=== PATIENT | female | born 1975 | race Caucasian/White ===

== ENCOUNTER 2020-07-16 12:58 | Emergency (ER) | payer OTHER ==
[~2020-07-16] VITALS: Ht 162.6 cm; Wt 69.0 kg
--- NOTE | 2020-07-16 14:17 | RAD ---
EXAM: CT pelvis without contrast DATE: 07/16/2020 1:55 PM COMPARISON: No prior INDICATION: Reason: sledging, hit a big rock, pelvic pain, hip pain, coccyx pain / Spl. Instructions : / History: TECHNIQUE: CT of the pelvis was performed without IV contrast. Axial, coronal and sagittal reformatte d images were generated. PQRS compliance statement - One or more of the following individualized dose reduction techniques wer e utilized for this study: 1. Automated exposure control 2. Adjustment of the mA and/or kV according to patient size 3. Use of iterative reconstruction technique FINDINGS: Symphysis pubis and SI joints are preserved. No acute fracture or dislocation. Schmorl's node is seen at the superior endplate of L5. Moderate colonic stool content. No pelvic mass, lymphadenopathy or ascites. Subcutaneous soft tissue swelling about the gluteal muscles bilaterally likely contusion. IMPRESSION: 1. Soft tissue contusion overlying the gluteal region bilaterally. 2. No definite acute fracture or dislocation. Electronically signed by: Wing Garrison MD (07/16/2020 2:14 PM) [id number]
--- NOTE | 2020-07-16 15:03 | PHYS DOC ---
Past History Past Medical History: Cancer, GERD Additional Past Medical Histor: HORMONE REPLACEMENT, IBS, ADHD Past Surgical History: Cholecystectomy, Hysterectomy Additional Past Surgical Histo: R. SINUS, LIPO, BREAST AUG, VAGINAL FLAP, UPPER/LOWER ENDO Alcohol Use: Occasionally General Adult EDM: Chief Complaint: GROIN PAIN HPI: HPI: Patient is a 45 years old female who presented to the ER for evaluation of pelvic pain, coccyx pain and buttock contusion due to sledding accident on 07/14/20. Patient said she and her friend was sledding down a hill, her friend was sitting in front. Their sled struck a large rock on the ground, broke it. She has have pelvic pain since. She was able to walk but could not sit on her butt due to pain. She denied any vaginal bleeding. She denied any abdominal pain. She said her friend broke her tailbone. She did not seek medical attention until today. Patient denied any weakness or numbness in her legs. NO bowel or bladder incontinence. Review of Systems: Review of Systems: Constitutional: Denies fever or chills Eyes: Denies change in visual acuity HENT: Denies nasal congestion or sore throat Respiratory: Denies cough or shortness of breath Cardiovascular: Denies chest pain or edema GI: Denies abdominal pain, nausea, vomiting, bloody stools or diarrhea : Denies dysuria Musculoskeletal: Positive for pelvic pain Integument: Positive for buttock bruise. Neurologic: Denies headache, focal weakness or sensory changes Endocrine: Denies polyuria or polydipsia Lymphatic: Denies swollen glands Psychiatric: Denies depression or anxiety Allergies: Allergies: Allergies Coded Allergies Type Severity Reaction Last Updated Verified sulfamethoxazole Allergy Severe Anaphylaxis 07/16/20 Yes trimethoprim Allergy Severe Anaphylaxis 07/16/20 Yes Physical Exam: PE: Constitutional: Well developed, well nourished, no acute distress, non-toxic appearance. [] HENT: Normocephalic, atraumatic, bilateral external ears normal, oropharynx moist, no oral exudates, nose normal. [] Eyes: PERRLA, EOMI, conjunctiva normal, no discharge. [] Neck: Normal range of motion, no tenderness, supple, no stridor. [] Cardiovascular:Heart rate regular rhythm, no murmur [] Lungs & Thorax: Bilateral breath sounds clear to auscultation [] Abdomen: Bowel sounds normal, soft, no tenderness, no masses, no pulsatile masses. [] Skin: Warm, dry, large skin contusion at and around the perigenital, buttock area. Back: No tenderness, no CVA tenderness. [] Extremities: No tenderness, no cyanosis, no clubbing, ROM intact, no edema. COCCYX AREA IS TENDER TO PALPATION, PELVIC AREA IS TENDER TO PALPATION. NO TENDER WITH HIP MOVEMENT. Neurologic: Alert and oriented X 3, normal motor function, normal sensory function, no focal deficits noted. [] Psychologic: Affect normal, judgement normal, mood normal. [] Current Patient Data: Vital Signs: Vital Signs Date Time Temp Pulse Resp B/P (MAP) Pulse Ox O2 Delivery O2 Flow Rate FiO2 07/16/20 13:46 98.4 106 18 150/94 (112) 99 Room Air EKG: EKG: [] Radiology/Procedures: Radiology/Procedures: [place] [address] IMAGING REPORT Signed PATIENT: MADAN EDMONDSOUNT: [id number] : 1975 LOCATION: ER AGE: 45 SEX: F EXAM STATUS: REG ER ORD. PHYSICIAN: SWETA PRESLEY DO REASON: sledging, hit a big rock, pelvic pain, hip pain, coccyx pain PROCEDURE: CT PELVIS WO CONTRAST EXAM: CT pelvis without contrast DATE: 07/16/2020 1:55 PM COMPARISON: No prior INDICATION: Reason: sledging, hit a big rock, pelvic pain, hip pain, coccyx pain / Spl. Instructions: / History: TECHNIQUE: CT of the pelvis was performed without IV contrast. Axial, coronal and sagittal reformatted images were generated. PQRS compliance statement - One or more of the following individualized dose reduction techniques were utilized for this study: 1. Automated exposure control 2. Adjustment of the mA and/or kV according to patient size 3. Use of iterative reconstruction technique FINDINGS: Symphysis pubis and SI joints are preserved. No acute fracture or dislocation. Schmorl's node is seen at the superior endplate of L5. Moderate colonic stool content. No pelvic mass, lymphadenopathy or ascites. Subcutaneous soft tissue swelling about the gluteal muscles bilaterally likely contusion. IMPRESSION: 1. Soft tissue contusion overlying the gluteal region bilaterally. 2. No definite acute fracture or dislocation. Electronically signed by: Wing Bustamante MD (07/16/2020 2:14 PM) [id number] DICTATED AND SIGNED BY: WING BUSTAMANTE MD DATE: 07/16/20 1411 CC: INDER VENTURA MD; SWETA PRESLEY DO ~MTH0 0 Heart Score: Risk Factors: Risk Factors: DM, Current or recent (<one month) smoker, HTN, HLP, family hist ory of CAD, obesity. Risk Scores: Score 0 - 3: 2.5% MACE over next 6 weeks - Discharge Home Score 4 - 6: 20.3% MACE over next 6 weeks - Admit for Clinical Observation Score 7 - 10: 72.7% MACE over next 6 weeks - Early Invasive Strategies Course & Med Decision Making: Course & Med Decision Making Pertinent Labs and Imaging studies reviewed. (See chart for details) CT scan did not show any bony abnormality in pelvic area, large area of soft tissue contusion. Patient was able to weight bearing. She declined pain medication. Will discharge her home. [employer] Disclaimer: [employer] Disclaimer: This electronic medical record was generated, in whole or in part, using a voice recognition dictation system. Departure Departure: Impression: Primary Impression: Contusion of pelvic region Disposition: 01 DC HOME SELF CARE/HOMELESS Condition: STABLE Referrals: INDER VENTURA MD (PCP) FOLLOW UP WITH YOUR DOCTOR NEEDED Patient Instructions: Contusion, Tailbone Injury Additional Instructions: Thank you for visiting our Emergency Department. We appreciate you trusting us with your care. If any additional problems come up don't hesitate to return to visit us. Please follow up with your primary care provider so they can plan additional care if needed and know about the problem that you had. If symptoms worsen come back to the Emergency Department. Any concerning symptoms that start such as chest pain, shortness of air, weakness or numbness on one side of the body, running high fevers or any other concerning symptoms return to the ER. SWETA PRESLEY DO Jul 16, 2020 15:03
[2020-07-16 15:09] VITALS: BP 124/72
== END 2020-07-16 15:09 | disposition home or self-care (01) ==
LOC: ER 12:58
DX: S37.92XA Contusion of unspecified urinary and pelvic organ, initial encounter (principal); S30.0XXA Contusion of lower back and pelvis, initial encounter; K21.9 Gastro-esophageal reflux disease without esophagitis; K58.9 Irritable bowel syndrome, unspecified; Z90.49 Acquired absence of other specified parts of digestive tract; Z90.710 Acquired absence of both cervix and uterus; Z88.2 Allergy status to sulfonamides; Z88.1 Allergy status to other antibiotic agents; W17.89XA Other fall from one level to another, initial encounter; Y93.23 Activity, snow (alpine) (downhill) skiing, snowboarding, sledding, tobogganing and snow tubing; Y92.89 Other specified places as the place of occurrence of the external cause; Y99.8 Other external cause status
CPT/HCPCS: 72192; 99284

== ENCOUNTER 2021-02-27 17:06 | Emergency (ER) | payer OTHER ==
[~2021-02-27] VITALS: Ht 162.6 cm; Wt 66.1 kg
[2021-02-27] MEDS ORDERED: diphenhydrAMINE 50 MG/ML VIAL IVP ONE (18:00)
[2021-02-27] MEDS ORDERED: KETOROLAC 15 MG/ML VIAL. IVP ONE (18:00)
--- NOTE | 2021-02-27 18:06 | EKG ---
[address] [address] Test Date: 2021-02-27 Test Time: 17:37:23 Pat Name: MADAN EDMONDS Department: Room: Gender: F Implementation Project Manager: STACIE : 1975 Requested By: ANNALISA SHANKAR Order Number: [id number] Reading MD: Measurements Intervals [place] Rate: 88 P: 38 HI: 142 QRS: 49 QRSD: 72 T: 21 QT: 340 QTc: 415 Interpretive Statements SINUS RHYTHM NORMAL ECG RI6.02 No previous ECG available for comparison
[2021-02-27 18:50] LABS: BASO % 1 % (0-3); EOS # 0.2 x10^3/uL (0.0-0.7); EOS % 4 % (0-3); HEMATOCRIT 44.4 % (36.0-47.0); HEMOGLOBIN 15.3 g/dL (12.0-15.5); LYMPH # 1.9 x10^3/uL (1.0-4.8); LYMPH % 39 % (24-48); MEAN CORPUSCULAR HEMOGLOBIN 34 pg (25-35); MEAN CORPUSCULAR HGB CONC 35 g/dL (31-37); MEAN CORPUSCULAR VOLUME 99 fL (79-100); MONO # 0.6 x10^3/uL (0.0-1.1); MONO % 13 % (0-9); NEUT # 2.1 x10^3uL (1.8-7.7); NEUT % 43 % (31-73); PLATELET COUNT 225 x10^3/uL (140-400); RED BLOOD COUNT 4.47 x10^6/uL (3.50-5.40); RED CELL DISTRIBUTION WIDTH 12.6 % (11.5-14.5); WHITE BLOOD COUNT 4.8 x10^3/uL (4.0-11.0)
[2021-02-27 18:52] LABS: CALCIUM 8.8 mg/dL (8.5-10.1); CREATININE 0.6 mg/dL (0.6-1.0); GFR 108.1; POTASSIUM 3.6 mmol/L (3.5-5.1)
[2021-02-27 18:58] LABS: ALBUMIN/GLOBULIN RATIO 1.4 (1.0-1.7); TOTAL BILIRUBIN 0.3 mg/dL (0.2-1.0); TOTAL PROTEIN 6.9 g/dL (6.4-8.2)
--- NOTE | 2021-02-27 19:32 | PHYS DOC ---
Past History Past Medical History: Cancer, GERD Additional Past Medical Histor: HORMONE REPLACEMENT, IBS, ADHD (ANNALISA SHANKAR APRN) Past Surgical History: Cholecystectomy, Hysterectomy Additional Past Surgical Histo: R. SINUS, LIPO, BREAST AUG, VAGINAL FLAP, UPPER/LOWER ENDO (ANNALISA SHANKAR APRN) Alcohol Use: Occasionally (ANNALISA SHANKAR APRN) General Adult EDM: Chief Complaint: HEADACHE HPI: HPI: Patient is a 45-year-old female who presents with migraine headache for the last week. Patient states that she has been tested for Covid, flu which both were negative. States "I am waking up on the night with night sweats and my headache has been almost continuous for a week". "I have bilateral arm pain". Denies chest pain denies nausea and vomiting. Denies fever. Denies cough. (ANNALISA SHANKAR APRN) Review of Systems: Review of Systems: Constitutional: Denies fever or chills Eyes: Denies change in visual acuity HENT: Reports sinus pressure. Respiratory: Denies cough or shortness of breath Cardiovascular: Denies chest pain or edema GI: Denies abdominal pain, nausea, vomiting, bloody stools or diarrhea : Denies dysuria Musculoskeletal: Denies back pain or joint pain Integument: Denies rash Neurologic: Reports headache.denies focal weakness or sensory changes Endocrine: Denies polyuria or polydipsia Lymphatic: Denies swollen glands Psychiatric: Denies depression or anxiety (ANNALISA SHANKAR APRN) Current Medications: Current Meds: Current Medications Medications (Trade) Dose Ordered Sig/Chen Start Time Stop Time Status Last Admin Dose Admin Diphenhydramine HCl (Benadryl) 25 mg 1X ONCE 02/27/21 18:00 02/27/21 18:12 DC 02/27/21 18:00 25 MG Ketorolac Tromethamine (Toradol 15mg Vial) 15 mg 1X ONCE 02/27/21 18:00 02/27/21 18:12 DC 02/27/21 18:00 15 MG (NANALISA SHANKAR APRN) Allergies: Allergies: Allergies Coded Allergies Type Severity Reaction Last Updated Verified sulfamethoxazole Allergy Severe Anaphylaxis 07/16/20 Yes trimethoprim Allergy Severe Anaphylaxis 07/16/20 Yes (ANNALISA SHANKAR APRN) Physical Exam: PE: Constitutional: Well developed, well nourished, no acute distress, non-toxic appearance. [] HENT: Normocephalic, atraumatic, bilateral external ears normal, oropharynx moist, no oral exudates, nose normal. [] Eyes: PERRLA, EOMI, conjunctiva normal, no discharge. [] Neck: Normal range of motion, no tenderness, supple, no stridor. [] Cardiovascular:Heart rate regular rhythm, no murmur [] Lungs & Thorax: Bilateral breath sounds clear to auscultation [] Abdomen: Bowel sounds normal, soft, no tenderness, no masses, no pulsatile masses. [] Skin: Warm, dry, no erythema, no rash. [] Back: No tenderness, no CVA tenderness. [] Extremities: No tenderness, no cyanosis, no clubbing, ROM intact, no edema. [] Neurologic: Alert and oriented X 3, normal motor function, normal sensory function, no focal deficits noted. [] Psychologic: Affect normal, judgement normal, mood normal. [] (ANNALISA SHANKAR APRN) Current Patient Data: Labs: Laboratory Tests Test 02/27/21 18:10 White Blood Count 4.8 x10^3/uL (4.0-11.0) Red Blood Count 4.47 x10^6/uL (3.50-5.40) Hemoglobin 15.3 g/dL (12.0-15.5) Hematocrit 44.4 % (36.0-47.0) Mean Corpuscular Volume 99 fL (79-100) Mean Corpuscular Hemoglobin 34 pg (25-35) Mean Corpuscular Hemoglobin Concent 35 g/dL (31-37) Red Cell Distribution Width 12.6 % (11.5-14.5) Platelet Count 225 x10^3/uL (140-400) Neutrophils (%) (Auto) 43 % (31-73) Lymphocytes (%) (Auto) 39 % (24-48) Monocytes (%) (Auto) 13 % (0-9) H Eosinophils (%) (Auto) 4 % (0-3) H Basophils (%) (Auto) 1 % (0-3) Neutrophils # (Auto) 2.1 x10^3uL (1.8-7.7) Lymphocytes # (Auto) 1.9 x10^3/uL (1.0-4.8) Monocytes # (Auto) 0.6 x10^3/uL (0.0-1.1) Eosinophils # (Auto) 0.2 x10^3/uL (0.0-0.7) Basophils # (Auto) 0.0 x10^3/uL (0.0-0.2) Sodium Level 142 mmol/L (136-145) Potassium Level 3.6 mmol/L (3.5-5.1) Chloride Level 104 mmol/L (98-107) Carbon Dioxide Level 31 mmol/L (21-32) Anion Gap 7 (6-14) Blood Urea Nitrogen 11 mg/dL (7-20) Creatinine 0.6 mg/dL (0.6-1.0) Estimated GFR (Cockcroft-Gault) 108.1 BUN/Creatinine Ratio 18 (6-20) Glucose Level 78 mg/dL (70-99) Calcium Level 8.8 mg/dL (8.5-10.1) Total Bilirubin 0.3 mg/dL (0.2-1.0) Aspartate Amino Transferase (AST) 23 U/L (15-37) Alanine Aminotransferase (ALT) 46 U/L (14-59) Alkaline Phosphatase 67 U/L (46-116) Troponin I Quantitative < 0.017 ng/mL (0-0.055) Total Protein 6.9 g/dL (6.4-8.2) Albumin 4.0 g/dL (3.4-5.0) Albumin/Globulin Ratio 1.4 (1.0-1.7) Vital Signs: Vital Signs Date Time Temp Pulse Resp B/P (MAP) Pulse Ox O2 Delivery O2 Flow Rate FiO2 02/27/21 17:57 98.1 89 18 149/93 (111) 99 (ANNALISA SHANKAR APRN) EKG: EKG: [] (ANNALISA SHANKAR APRN) Radiology/Procedures: Radiology/Procedures: [] (ANNALISA SHANKAR APRN) Heart Score: C/O Chest Pain: No Risk Factors: Risk Factors: DM, Current or recent (<one month) smoker, HTN, HLP, family history of CAD, obesity. Risk Scores: Score 0 - 3: 2.5% MACE over next 6 weeks - Discharge Home Score 4 - 6: 20.3% MACE over next 6 weeks - Admit for Clinical Observation Score 7 - 10: 72.7% MACE over next 6 weeks - Early Invasive Strategies (ANNALISA SHANKAR APRN) Course & Med Decision Making: Course & Med Decision Making Pertinent Labs and Imaging studies reviewed. (See chart for details) [] 45-year-old female presents with migraine headache for the last week along with sinus pressure. Patient was tested for Covid and the flu which were both negative. Patient was also tested for strep throat which was negative .denies worst headache of her life. Denies neck stiffness. Denies thunderclap. Denies chest pain, shortness of breath, cough, nausea/vomiting.. Afebrile. Patient has been taking Aleve at home which has helped with the headache. All labs unremarkable. Troponin is negative. Heart score of 0. EKG shows sinus rhythm. Patient given Benadryl and Toradol for headache. Discussed results with patient. Explained to patient she most likely has headache from sinus infection. Advised patient to follow-up with her PCP for further recommendation and management. Patient is hemodynamically stable upon disposition. (ANNALISA SHANAKR APRN) Course & Med Decision Making Did not see or evaluate patient. Did not discuss patient with SMOOTH PLATER. Agree with SMOOTH PLATER's work-up and disposition per note. (LEROY TAVAREZ MD) Dragon Disclaimer: Dragon Disclaimer: This electronic medical record was generated, in whole or in part, using a voice recognition dictation system. (ANNALISA SHANKAR APRN) Departure Departure: Impression: Primary Impression: Headache Qualified Codes: R51.9 - Headache, unspecified Disposition: HOME / SELF CARE / HOMELESS Condition: STABLE Referrals: INDER VENTURA MD (PCP) Patient Instructions: Headache and Allergies Additional Instructions: You were seen emergency room for headache, bilateral arm pain, sinus pressure. We completed a full cardiac work-up. All your labs were unremarkable. Your EKG showed sinus rhythm. Your troponin was negative. I would advise you to follow-up with your PCP for further management. Continue taking ibuprofen and Tylenol at home for discomfort. Return to emergency room if you have worsening symptoms or concerns. EMERGENCY DEPARTMENT GENERAL DISCHARGE INSTRUCTIONS Thank you for coming to [facility] (ED) today and trusting us with you care. We trust that you had a positivie experience in our Emergency Department. If you wish to speak to the department management, you may call the director at [phone]. YOUR FOLLOW UP INSTRUCTIONS ARE FOLLOWS: 1. Do you have a private Doctor? If you do not have a private doctor, please ask for a resource list of physicians or clinics that may be able to assist you with follow up care. 2. The Emergency Physician has interpreted your x-rays. The X-Ray specialist will also review them. If there is a change in the findings, you will be notified in 48 hours when at all possible. 3. A lab test or culture has been done, your results will be reviewed and you will be notified if you need a change in treatment. ADDITIONAL INSTRUCTIONS AND INFORMATION: 1. Your care today has been supervised by a physician who is specially trained in emergency care. Many problems require more than one evaluation for a complete diagnosis and treatment. We recommend that you schedule your follow up appointment as recommended to ensure complete treatment of you illness or injury. If you are unable to obtain follow up care and continue to have a problem, or if your condition worsens, we recommend that you return to the ED. 2. We are not able to safely determine your condition over the phone nor are we able to give sound medical advice over the phone. For these safety reasons, if you call for medical advice we will ask you to come to the ED for further evaluation. 3. If you have any questions regarding these discharge instructions please call the ED at [phone]. SAFETY INFORMATION: In the interest of safety, wellness, and injury prevention; we encourage you to wear your sealbelt, if you smoke; quite smoking, and we encourage family to use a protective helmet for bicycling and other sporting events that present an increased risk for head injury. IF YOUR SYMPTOMS WORSEN OR NEW SYMPTOMS DEVELOP, OR YOU HAVE CONCERNS ABOUT YOUR CONDITION; OR IF YOUR CONDITION WORSENS WHILE YOU ARE WAITING FOR YOUR FOLLOW UP APPOINTMENT; EITHER CONTACT YOUR PRIMARY CARE DOCTOR, THE PHYSICIAN WHOSE NAME AND NUMBER YOU WERE GIVEN, OR RETURN TO THE ED IMMEDIATELY. ANNALISA SHANKAR APRN Feb 27, 2021 19:32 LEROY TAVAREZ MD Feb 27, 2021 22:25
[2021-02-27 19:50] VITALS: BP 166/93
[2021-02-27 20:21] LABS: BACTERIA,URINE 0 /HPF (0-FEW); BILIRUBIN,URINE NEG (NEG); CLARITY,URINE CLEAR; COLOR,URINE YELLOW; GLUCOSE,URINE NEG (NEG); NITRITE,URINE NEG (NEG); RBC,URINE 0 /HPF (0-2); SQUAMOUS EPITHELIAL CELL,UR OCC /LPF; UROBILINOGEN,URINE 0.2 mg/dL (0.2 mg/dL); WBC,URINE 0 /HPF (0-4)
== END 2021-02-27 19:57 | disposition home or self-care (01) ==
LOC: ER 17:06
DX: G43.909 Migraine, unspecified, not intractable, without status migrainosus (principal); K21.9 Gastro-esophageal reflux disease without esophagitis; Z90.49 Acquired absence of other specified parts of digestive tract; Z88.2 Allergy status to sulfonamides; Z90.710 Acquired absence of both cervix and uterus
CPT/HCPCS: 36415; 80053; 81001; 81025; 84484; 85025; 93005; 96374; 96375; 99284; J1200; J1885